=== PATIENT | female | born 1945 | race Caucasian/White ===

== ENCOUNTER → 2018-12-10 | Outpatient (CLI) | payer MEDICARE | END | disposition home or self-care (01) | LOC: PCVCCLINIC 14:40 | PROVIDERS: ATTEND Internal Medicine | DX: D86.0 Sarcoidosis of lung (principal); E78.5 Hyperlipidemia, unspecified; J67.9 Hypersensitivity pneumonitis due to unspecified organic dust; I10 Essential (primary) hypertension; J84.9 Interstitial pulmonary disease, unspecified; G47.33 Obstructive sleep apnea (adult) (pediatric); R06.02 Shortness of breath; Z87.891 Personal history of nicotine dependence | CPT/HCPCS: 36415; 80061; 93005; G0463 ==

== ENCOUNTER → 2018-12-21 | Outpatient (CLI) | payer MEDICARE ==
[~2018-12-21] MED LIST: AMINOPHYLLINE 250 MG/10 ML VIAL. ONE; REGADENOSON 0.4 MG/5 ML DISP.SYRIN. IV ONE
--- NOTE | 2018-12-21 17:25 | PCVCIMAG ---
APPROVED REPORT Imaging Protocol: Rest Tc-99m/Stress Tc-99m 1 day Study performed: 12/21/2018 13:50:55 Indication: Chest pain, Dyspnea Patient Location: Out-Patient Stress Tech: ROCCO Lebron Stress Nurse: Johanne Ornelas RN, Maritza Garner RN NM Tech:ROCCO Lebron Ht: 5 ft 2 in Wt: 120 lbs BSA: 1.54 m2 HR: 95 bpm BP: 142/76 mmHg BMI: 21.9 Medical History Medical History: HTN, COPD, Former Smoker, Dyspnea, Former Smoker Medications: Amlodipine, Adderall, Wellbutrin, Voltaren, Prilosec, Continuous O2 Allergies: Daptomycin, Furosemide HCTZ, Sulfa Cardiac Risk Factors: Age Pretest Chest Pain Characteristics: No chest pain Exercise History: Sedentary Resting Data Rest SPECT myocardial perfusion imaging was performed in supine position 45 minutes following the intravenous injection of 10.4 mCi of Tc-99m Sestamibi. Time of rest injection: 1340 Date: 12/21/2018 Administration Route: IV Administration Site: Right AC Pharmacologic Stress Pharmacologic stress test was performed by injecting Regadenoson 0.4 mg IV push over 10-15 seconds immediately followed by the intravenous injection of 30.8 mCi of Tc-99m Sestamibi. Time of stress injection: 1515 Date: 12/21/2018 Administration Route: IV Administration Site: Right AC Gated Stress SPECT was performed 45 minutes after stress injection. The images were gated to evaluate regional wall motion and calculate left ventricular ejection fraction. Stress Test Details Stress Test: Pharmacologic stress testing performed using 0.4 mg of regadenoson per 5 mL given IV over 10 seconds. Reason for pharmacologic stress test: COPD. Reversal agent Aminophyline 100 mg, given intravenously for headache. HRMax Heart Rate (APMHR): 148 bpm Resting HR: 95 bpmTarget HR (85% APMHR): 125 bpm Max HR Achieved: 101 bpm % of APMHR: 68 Recovery HR: 99 bpm BP Resting BP: 142/76 mmHg Max BP: 130/64 mmHg Recovery BP: 144/72 mmHg ECG Resting ECG: Sinus Rhythm, nonspecific ST-T abnormalities Stress ECG: Sinus Tachycardia ST Change: None Maximum ST Deviation: 0 mm Arrhythmia: PVC's Recovery ECG: Sinus Rhythm, nonspecific ST-T abnormalities Recovery ST Change: None Recovery ST Deviation: 0 mm Recovery Arrhythmia: VPC Clinical Reason for Termination: Completed protocol Stress Symptoms: Dyspnea, Headache Exercise duration: min 55 sec Symptoms resolved with caffeine. Stress ECG Conclusion Clinical: Non-ischemic ECG: Non-ischemic Study Quality Study: Good Study Data Post stress, the left ventricular ejection was 39%.. SSS: 1 SRS: 5 SDS: 0 TID = 1.07. Perfusion No evidence of stress induced ischemia or prior myocardial infarction. Wall Motion Global hypokinesis with moderate chamber dilatation. Moderately decreased left ventricular systolic function. Nuclear Conclusion No evidence of stress induced ischemia or prior myocardial infarction. Post stress, the left ventricular ejection was 39%. No prior study available for comparison. Interpreted by: Anival Lilly MD Electronically Approved: 12/21/2018 17:21:01 <Conclusion> Clinical: Non-ischemic ECG: Non-ischemic
== END | disposition home or self-care (01) ==
LOC: PCVCIMAG 13:27
PROVIDERS: ATTEND Internal Medicine
DX: R07.89 Other chest pain (principal); R53.83 Other fatigue; R06.09 Other forms of dyspnea; Z87.891 Personal history of nicotine dependence; Z88.8 Allergy status to other drugs, medicaments and biological substances
CPT/HCPCS: 78452; 93017; A9500; J0280; J2785

== ENCOUNTER → 2019-04-15 | Outpatient (CLI) | payer MEDICARE ==
--- NOTE | 2019-04-16 09:21 | PCVCIMAG ---
APPROVED REPORT Study performed: 04/15/2019 14:18:52 EXAM: Comprehensive 2D, Doppler, and color-flow Echocardiogram Patient Location: Echo lab Status: routine BSA: 1.53 HR: 66 bpmBP: 130/70 mmHg Rhythm: NSR Other Information Study Quality: Good Risk Factors: Cardiac Risk Factors: Hyperlipidemia Indications Cardiomyopathy Sarcoidosis, Hyperlipidemia, RUBEN 2D Dimensions IVSd: 9.70 (7-11mm)LVOT Diam: 19.49 (18-24mm) LVDd: 48.33 mm PWd: 10.23 (7-11mm)Ascending Ao: 36.55 (22-36mm) LVDs: 44.05 (25-40mm) Left Atrium: 37.00 (27-40mm) Aortic Root: 26.92 mm LV Single Plane 4CH: 33.83 % LV Single Plane 2CH: 47.46 % Biplane EF: 42.5 % Volumes Left Atrial Volume (Systole) Single Plane 4CH: 18.33 mLSingle Plane 2CH: 32.45 mL LA ESV Index: 16.00 mL/m2 Aortic Valve AoV Peak Abdirizak.: 1.73 m/s AO Peak Gr.: 11.96 mmHgLVOT Max P.10 mmHg LVOT Max V: 1.01 m/s LOTTIE Vmax: 1.75 cm2 AI Vmax: 4.20 m/s AI Gladwin: 1.79 m/s2 AI PHT: 678.68 ms Mitral Valve E/A Ratio: 0.5 MV Decel. Time: 335.23 ms MV E Max Abdirizak.: 0.71 m/s MV A Abdirizak.: 1.34 m/s IVRT: 141.87 ms TDI E/Lateral E': 14.20E/Medial E': 17.75 Medial E' Abdirizak.: 0.04 m/s Lateral E' Abdirizak.: 0.05 m/s Pulmonary Valve PV Peak Gr.: 2.32 mmHg Pulmonary Vein P Vein S: 0.58 m/sP Vein A: 0.31 m/s P Vein D: 0.41 m/sP Vein A Dur.: 117.6 msec P Vein S/D Ratio: 1.41 Tricuspid Valve TR Peak Abdirizak.: 2.78 m/s TR Peak Gr.: 30.87 mmHg Left Ventricle The left ventricle is normal size. There is global hypokinesis of the left ventricle. There is normal left ventricular wall thickness. Left ventricular systolic function is mild-moderately decreased. LVEF 45%. Mild diastolic dysfunction Right Ventricle The right ventricle is normal size. The right ventricular systolic function is normal. Atria The left atrium size is normal. The right atrium size is normal. Aortic Valve The aortic valve is trileaflet, mildly sclerotic Mild-moderate aortic regurgitation There is no aortic valvular stenosis. Mitral Valve The mitral valve leaflets are mildly thickened Mild to moderate mitral regurgitation. No evidence of mitral valve stenosis. Tricuspid Valve The tricuspid valve is normal in structure. Mild tricuspid regurgitation. Pulmonary artery pressure is 38 mmHg. Pulmonic Valve The pulmonary valve is normal in structure. There is no pulmonic valvular regurgitation. Great Vessels The aortic root is normal in size. IVC is normal in size and collapses >50% with inspiration. Pericardium There is no pericardial effusion. <Conclusion> Left ventricular systolic function is mild-moderately decreased. There is global hypokinesis of the left ventricle. LVEF 45%. Mild diastolic dysfunction The aortic valve is trileaflet, mildly sclerotic. Mild-moderate aortic regurgitation The mitral valve leaflets are mildly thickened Mild to moderate mitral regurgitation. Mild tricuspid regurgitation. Pulmonary artery pressure of 38 mmHg. There is no pericardial effusion.
== END | disposition home or self-care (01) ==
LOC: PCVCIMAG 14:03
PROVIDERS: ATTEND Internal Medicine
DX: I08.3 Combined rheumatic disorders of mitral, aortic and tricuspid valves (principal); D86.9 Sarcoidosis, unspecified; I10 Essential (primary) hypertension; E78.5 Hyperlipidemia, unspecified; J67.9 Hypersensitivity pneumonitis due to unspecified organic dust; I45.10 Unspecified right bundle-branch block; R94.31 Abnormal electrocardiogram [ECG] [EKG]; Z90.49 Acquired absence of other specified parts of digestive tract; Z90.710 Acquired absence of both cervix and uterus; Z90.09 Acquired absence of other part of head and neck; Z82.49 Family history of ischemic heart disease and other diseases of the circulatory system; Z82.3 Family history of stroke; Z80.9 Family history of malignant neoplasm, unspecified; Z79.899 Other long term (current) drug therapy; Z87.891 Personal history of nicotine dependence; Z72.89 Other problems related to lifestyle; Z88.2 Allergy status to sulfonamides; Z88.8 Allergy status to other drugs, medicaments and biological substances; Z88.1 Allergy status to other antibiotic agents
CPT/HCPCS: 93005; 93306; G0463